=== PATIENT | female | born 1995 | race Caucasian/White ===

== ENCOUNTER → 2019-12-11 14:32 | Outpatient (BNVA) | payer OTHER, SELFPAY | PROVIDERS: Family Provider Nurse Practitioner Family; PCP Nurse Practitioner Family; Visit Provider Nurse Practitioner Family | DX: Z30.42 Encounter for surveillance of injectable contraceptive (principal) | CPT/HCPCS: 81025 ==

== ENCOUNTER → 2019-12-17 14:28 | Outpatient (BNVA) | payer OTHER, MEDICAID, SELFPAY | PROVIDERS: Family Provider Nurse Practitioner Family; PCP Nurse Practitioner Family; Visit Provider Nurse Practitioner Family | DX: Z30.42 Encounter for surveillance of injectable contraceptive (principal) | CPT/HCPCS: 81025 ==

== ENCOUNTER → 2020-02-14 14:05 | Outpatient (BNVA) | payer OTHER, SELFPAY | PROVIDERS: Family Provider Nurse Practitioner Family; PCP Nurse Practitioner Family; Visit Provider Nurse Practitioner Family | DX: R42 Dizziness and giddiness (principal); E78.2 Mixed hyperlipidemia; R53.83 Other fatigue; E55.9 Vitamin D deficiency, unspecified; D64.9 Anemia, unspecified; Z79.899 Other long term (current) drug therapy | CPT/HCPCS: 80053; 80061; 81001; 82306; 82607; 82728; 83036; 83540; 84439; 84443; 84481; 85025 ==

== ENCOUNTER → 2021-03-19 12:00 | Outpatient (BNVA) | payer OTHER, MEDICAID, SELFPAY | PROVIDERS: Family Provider Nurse Practitioner Family; PCP Nurse Practitioner Family; Visit Provider Nurse Practitioner Family | DX: J02.9 Acute pharyngitis, unspecified (principal) | CPT/HCPCS: 87070; 87880 ==

== ENCOUNTER → 2021-08-05 12:46 | Outpatient (BNVA) | payer OTHER, MEDICAID, SELFPAY | PROVIDERS: Family Provider Nurse Practitioner Family; PCP Nurse Practitioner Family; Visit Provider Nurse Practitioner Women's Health | DX: N92.6 Irregular menstruation, unspecified (principal); Z78.9 Other specified health status | CPT/HCPCS: 81025; 84702 ==

== ENCOUNTER 2021-08-06 20:32 | Emergency (ER) | payer OTHER, MEDICAID, SELFPAY ==
[2021-08-06 20:45] VITALS: BP 150/85; PULSE 72; RESP 16; TEMP 36.2; O2SAT 100; BMI 38.4
[2021-08-06 21:07] LABS: Add Urine Microscopic? NO; Charge for UA Resulting for Rev
[2021-08-06 21:08] LABS: Bilirubin Urine Neg (Negative); Blood Urine Neg (Negative); Glucose Urine UA Norm (Normal); Ketones Urine Negative (Negative); Leukocyte Esterase Urine Negative (Negative); Nitrate Urine Negative (Negative); Protein Urine Neg (Negative); Urine Appearance Clear (CLEAR); Urine Color Yellow (Yellow); Urobilinogen Urine Norm (Negative); pH Urine 5 (5-7)
--- NOTE | 2021-08-06 23:05 | ED_ITS ---
HPI - General: Chief complaint: OB/Uterine Contractions Stated complaint: bad cramps 6 weeks Time Seen by Provider: 08/06/21 22:57 History of Present Illness: HPI Narrative: Patient is a ,1 26-year-old female that is 6 weeks and comes to the ED with painful cramping. Cramping started yesterday. She denies any vaginal bleeding currently. She took some Tylenol around 4 PM today to help with the cramping pain. She contacted her OB doctor and they told her to come here to the ED to be evaluated. Denies any fever, chills or UTI symptoms. Her last resulted in a miscarriage and she is having similar symptoms from last miscarriage. Associated symptoms: Deny abdominal pain, dysuria, headache(s), nausea or vomiting Review of Systems Const: Denies: fever(s), chills or fatigue Eyes: Denies: change in vision or eye discomfort ENMT: Denies: throat pain, odynophagia, nasal discharge or nasal congestion Card: Denies: chest pain, palpitations, edema, swelling of feet/ankles, dyspnea on exertion or orthopnea Resp: Denies: dyspnea, productive cough or non-productive cough GI: Denies: abdominal pain, nausea, vomiting, diarrhea, constipation or hematochezia : Reports: pelvic pain (cramping ain); Denies: flank pain, dysuria, hematuria or vaginal bleeding Musc: Denies: neck pain, back pain or extremity swelling Skin/Breast: Denies: rash or new lesions Neuro: Denies: headache(s), numbness in extremities or weakness in extremities PFSH ED PFSH: Medical History No pertinent past medical history neghx: htn,dm,thyroid,dvt/pe PCP: SHERITA Gross Surgical History S/P lymph node biopsy 13 months of age- groin lymph node-- removed. Was benign. Family History Grandmother Breast cancer Maternal--dx age 50-60 Hypertension Maternal Mother Diabetes Hypertension Thyroid disease Grandfather Diabetes Paternal Thyroid disease Maternal Brother Hypertension Denies family history of Colon cancer Ovarian cancer Heart disease Hypercholesteremia Uterine cancer Stroke Physical Exam Const: COMMON NORMALS: no acute distress, patient oriented x3, healthy appearing and alert GENERAL APPEARANCE: cooperative and comfortable HENMT: COMMON NORMALS: normocephalic HEAD & SCALP: normocephalic MOUTH: Normal oral and palatal mucosa present THROAT: posterior oropharynx normal and uvula midline Eye: COMMON NORMALS: Equal, round and reactive pupils present PUPIL: Yes Equal, round and reactive pupils present Neck/C-Spine: COMMON NORMALS: supple GENERAL: Yes normal visual inspection Resp: COMMON NORMALS: normal respiratory effort, No retractions, No use of accessory muscles and clear to auscultation bilaterally AUSCULTATION: clear to auscultation bilaterally Cardio: COMMON NORMALS: regular rate, regular rhythm, S1 normal heart sound present, S2 normal heart sound present, No gallops present (Cardio), No clicks present (Cardio), No murmurs present (Cardio) and Peripheral pulses 2+ throughout RATE: regular rate RHYTHM: regular rhythm HEART SOUNDS: S1 normal heart sound present and S2 normal heart sound present PERIPHERAL PULSES: Peripheral pulses 2+ throughout GI: COMMON NORMALS: Normal to inspection, nondistended, normoactive bowel sounds present, Soft to palpation, non-tender and no masses PALPATION: Yes Soft to palpation : COMMON NORMALS: Yes no CVA tenderness BLADDER/KIDNEY EXAM: Yes no CVA tenderness Back/Pelvis: COMMON NORMALS: no CVA tenderness Extremity: COMMON NORMALS: normal to inspection Neuro: COMMON NORMALS: patient oriented x3 and moves all extremities SENSORIUM/ORIENTATION: Yes alert Skin: GENERAL SKIN EXAM: dry skin Course Vital Signs: Vital signs: Vital Signs Temperature 97.2 F L 08/06/21 20:45 Pulse Rate 78 08/07/21 00:57 Respiratory Rate 18 08/07/21 00:57 Blood Pressure 140/76 08/07/21 00:57 Pulse Oximetry 100 08/07/21 00:57 MDM - OB/Uterine Contractions MDM Narrative: Medical decision making narrative: Patient is a ,1 26-year-old female that is currently 6 weeks comes to the ED with abdominal cramping. Denies any other symptoms and no vaginal bleeding or discharge.. Vital stable. Patient appears nontoxic and in no acute distress. The rest of exam is benign. CBC is unremarkable. UA unremarkable. Patient is Rh type positive and hCG quant was 7316. Ultrasound showed a intrauterine gestational sac but no viability visible at this time. Patient was discharged home and told to call her OB doctor in the morning to discuss ED visit and ultrasound findings. Return to ED precautions given. She was told to have follow-up ultrasound done within the next 10 to 14 days. Patient understood and agreed with plan. Lab Data: Attestation: I reviewed the patient's lab results. Labs: Lab Results 08/06/21 08/06/21 08/06/21 20:50 23:35 23:35 WBC 9.2 10^3/uL 10^3/ uL (4.0-10.0) RBC 4.63 10^6/uL 10^6 /uL (4.1-5.3) Hgb 13.6 g/dL g/dL (11.5-15.3) Hct 42.6 % % (37.0-47.0) MCV 92.0 fl fl (81-99) MCH 29.4 pg pg (28.0-34.0) MCHC 31.9 g/dL g/dL (30.0-36.0) RDW 13.1 % % (12.1-15.1) Plt Count 209 10^3/cmm 10^3 /cmm (130-400) MPV 10.1 fL fL (7.4-10.4) Neut % (Auto) 53.3 % % Lymph % (Auto) 40.6 % % Swisher % (Auto) 5.4 % % Eos % (Auto) 0.4 % % Baso % (Auto) 0.1 % % Neut # (Auto) 4.89 10^3/uL 10^3 /uL (1.8-7.7) Lymph # (Auto) 3.7 10^3/uL 10^3/ uL (0.8-4.8) Swisher # (Auto) 0.5 10^3/uL 10^3/ uL (0.2-0.9) Eos # (Auto) 0.0 10^3/uL 10^3/ uL (0.0-0.8) Baso # (Auto) 0.0 10^3/uL 10^3/ uL (0.0-0.1) Nucleated RBC % (a uto) 0 % % Nucleated RBCs # 0.0 /100WBC /100W BC Ser , Shauna i-Qnt Urine Color Yellow (Yellow) Urine Appearance Clear (CLEAR) Urine pH 5 (5-7) Ur Specific Gravit y 1.010 (1.005-1.030) Urine Protein Neg (Negative) Urine Glucose (UA) Norm (Normal) Urine Ketones Negative (Negative) Urine Blood Neg (Negative) Urine Nitrate Negative (Negative) Urine Bilirubin Neg (Negative) Urine Urobilinogen Norm mg/dL mg/dL (Negative) Ur Leukocyte Marie ase Negative (Negative) Blood Type O Positive Rho(D) Type Positive Antibody Screen Negative 08/06/21 23:35 WBC RBC Hgb Hct MCV MCH MCHC RDW Plt Count MPV Neut % (Auto) Lymph % (Auto) Swisher % (Auto) Eos % (Auto) Baso % (Auto) Neut # (Auto) Lymph # (Auto) Swisher # (Auto) Eos # (Auto) Baso # (Auto) Nucleated RBC % (a uto) Nucleated RBCs # Ser , Shauna i-Qnt 7316.00 mIU/mL mI U/mL Urine Color Urine Appearance Urine pH Ur Specific Gravit y Urine Protein Urine Glucose (UA) Urine Ketones Urine Blood Urine Nitrate Urine Bilirubin Urine Urobilinogen Ur Leukocyte Marie ase Blood Type Rho(D) Type Antibody Screen Imaging Data^: US OB: Attestation: I personally reviewed and interpreted this imaging study as follows: Radiologist's impression: Ultrasound OB less than 14 weeks with transvaginal?prelim report?gestational sac seen in utero. No heartbeat seen yet. Gestational sac measuring around 5-1/[address] [address] Ultrasound Report Signed Patient: La Carney Unit #: [id number] : 1995 Age/Sex: 26 / F ADM Date: 08/06/21 Loc: ER Room/Bed: Attending Dr: Ordering Provider/Ordering MD: Jaden Leonard Date of Service: 08/06/21 Procedure(s): US OB <=14 wk fetus w transvag Accession Number(s): [id number] Report Number: [id number] PROCEDURE INFORMATION: Exam: US , Transvaginal Exam date and time: 08/06/2021 11:17 PM Age: 26 years old Clinical indication: complicated by abdominal or pelvic pain; Right lower quadrant; First trimester (<14 weeks 0 days); Gestational age or lmp: 5 w 4 day; ; Additional info: 6 weeks with painful cramping TECHNIQUE: Imaging protocol: Real-time transvaginal obstetrical ultrasound of the maternal pelvis with image documentation. Transvaginal imaging was used for better evaluation of the fetus, adnexa, and/or cervix. COMPARISON: No relevant prior studies available. FINDINGS: Gestation: Probable single intrauterine gestational sac in the uterine fundus. Probable yolk sac measuring 2.1 mm. Gestational sac diameter of 9 mm. No visible pole at this time. heart rate: No cardiac activity documented at this time. Placenta: No subchorionic hemorrhage identified. Amniotic fluid: Amniotic fluid volume subjectively adequate. MATERNAL: Uterus: Uterus has unremarkable size and morphology. Diffuse endometrial thickening. Right adnexa: Maternal right ovary is normal in size and appearance. Normal vascularity. Left adnexa: Maternal left ovary is normal in size and appearance. Unremarkable vascularity. US/US OB <=14 wk fetus w transvag IMPRESSION: 1. Probable early intrauterine gestation, however viability is not confirmed at this time. 2. As a pole is not clearly visible at this time, pseudo gestational sac cannot be excluded. Therefore, ectopic technically not excluded at this time. 3. Recommend Ob ultrasound follow-up in 10-14 days. Radiation Dose CTDIVOL = (mGy): DLP = (mGy-cm) Dictated By: Alex Buckner Signed By: Alex Buckner Signed Date/Time: 08/07/21 0113 [id number]/ [id number] Discharge Plan Discharge Patient Disposition: Home Clinical Impression: Abdominal cramping Currently Qualifiers: Weeks of gestation: less than 8 weeks Qualified Code(s): Z3A.01 - Less than 8 weeks gestation of Condition: Stable Prescriptions: No Action lidocaine HCl [Xylocaine] 10 mg/mL (1 %) solution 1 ml IM ONCE Qty: 1 RF: 0 ceftriaxone 1 gram recon soln 1 g IM ONCE Qty: 1 RF: 0 dexamethasone sodium phosphate 10 mg/mL solution 10 mg IM ONCE Qty: 1 RF: 0 [id number]-teoe oil 400 mcg-35 mg -25 mg-5 mg tablet,chewable PO RF: 0 Discharge Orders: Discharge ED (Routine); Ordered 08/07/21 Ordered By: Jaden Leonard Referrals: SHERITA Ayers, GLASS FURNACE OPERATOR [Primary Care Provider] - Discharge Diet: Regular Discharge Activity: Resume usual activity Patient Instructions: (ED) Activity Restrictions/Additional Instructions: Call your OB doctor tomorrow morning to discuss current symptoms and ultrasound findings. OB might want to do a repeat ultrasound in a week pending your symptoms. Take [id number] Tylenol for any pain. Return to the ER or your medical provider if condition worsens. Please read and understand discharge instructions. Thank you for choosing [facility] for your healthcare needs today. Please realize this is an emergency room and that we are providing you with a medical screening exam and this may not be complete and all inclusive of all the testing and or work up that you may need to determine your ailment or severity of your illness. It is very important that you follow up as instructed or that you return to the Emergency Department should you have concerns or if your condition changes or worsens in any way. Coding Level of Care Code ED Community Arts Worker for Estevan Fwjonathan Exam Comprehensive
--- NOTE | 2021-08-06 23:17 | USR_ITS ---
PROCEDURE INFORMATION: Exam: US , Transvaginal Exam date and time: 08/06/2021 11:17 PM Age: 26 years old Clinical indication: complicated by abdominal or pelvic pain; Right lower quadrant; First trimester (<14 weeks 0 days); Gestational age or lmp: 5 w 4 day; ; Additional info: 6 weeks with painful cramping TECHNIQUE: Imaging protocol: Real-time transvaginal obstetrical ultrasound of the maternal pelvis with image documentation. Transvaginal imaging was used for better evaluation of the fetus, adnexa, and/or cervix. COMPARISON: No relevant prior studies available. FINDINGS: Gestation: Probable single intrauterine gestational sac in the uterine fundus. Probable yolk sac measuring 2.1 mm. Gestational sac diameter of 9 mm. No visible pole at this time. heart rate: No cardiac activity documented at this time. Placenta: No subchorionic hemorrhage identified. Amniotic fluid: Amniotic fluid volume subjectively adequate. MATERNAL: Uterus: Uterus has unremarkable size and morphology. Diffuse endometrial thickening. Right adnexa: Maternal right ovary is normal in size and appearance. Normal vascularity. Left adnexa: Maternal left ovary is normal in size and appearance. Unremarkable vascularity. US/US OB <=14 wk fetus w transvag IMPRESSION: 1. Probable early intrauterine gestation, however viability is not confirmed at this time. 2. As a pole is not clearly visible at this time, pseudo gestational sac cannot be excluded. Therefore, ectopic technically not excluded at this time. 3. Recommend Ob ultrasound follow-up in 10-14 days. Radiation Dose CTDIVOL = (mGy): DLP = (mGy-cm)
[2021-08-07 00:09] LABS: Basophils % 0.1 %; Eosinophils % 0.4 %; Hematocrit 42.6 % (37.0-47.0); Hemoglobin 13.6 g/dL (11.5-15.3); Lymphocytes # 3.7 10^3/uL (0.8-4.8); Lymphocytes % 40.6 %; Mean Corpuscular HGB Conc 31.9 g/dL (30.0-36.0); Mean Corpuscular Hemoglobin 29.4 pg (28.0-34.0); Mean Platelet Volume 10.1 fL (7.4-10.4); Monocytes # 0.5 10^3/uL (0.2-0.9); Monocytes % 5.4 %; Neutrophils # 4.89 10^3/uL (1.8-7.7); Neutrophils % 53.3 %; Nucleated Red Blood Cells % 0 %; Platelet Count 209 10^3/cmm (130-400); Red Blood Count 4.63 10^6/uL (4.1-5.3); Red Cell Distribution Width 13.1 % (12.1-15.1); White Blood Count 9.2 10^3/uL (4.0-10.0)
--- NOTE | 2021-08-07 00:10 | PC.NURSE ---
In room while US was performed. Pt tolerated well.
[2021-08-07 00:11] VITALS: BP 145/81; PULSE 76; RESP 16; O2SAT 100
[2021-08-07 00:57] VITALS: BP 140/76; PULSE 78; RESP 18; O2SAT 100
== END 2021-08-07 00:58 | disposition home or self-care (01) ==
PROVIDERS: Emergency Medicine; Emergency Provider Physician Assistant; PCP Nurse Practitioner Family
DX: O26.891 Other specified pregnancy related conditions, first trimester (principal); Z3A.01 Less than 8 weeks gestation of pregnancy; R10.9 Unspecified abdominal pain
CPT/HCPCS: 76801; 76817; 81003; 84702; 85025; 86850; 86900; 99283

== ENCOUNTER → 2021-08-25 14:02 | Outpatient (BNVA) | payer OTHER, MEDICAID, SELFPAY | PROVIDERS: PCP Nurse Practitioner Family; Visit Provider Nurse Practitioner Women's Health | DX: Z34.90 Encounter for supervision of normal pregnancy, unspecified, unspecified trimester (principal) | CPT/HCPCS: 84315; 87077; 87086; 87184 ==

== ENCOUNTER → 2021-09-08 13:00 | Outpatient (BNVA) | payer MEDICAID, SELFPAY | PROVIDERS: PCP Nurse Practitioner Family; Visit Provider Obstetrics & Gynecology | DX: Z34.80 Encounter for supervision of other normal pregnancy, unspecified trimester (principal) | CPT/HCPCS: 80307; 83036; 84315; 84443; 85027; 86592; 86762; 86803; 86850; 86900; 87340; 87806 ==

== ENCOUNTER → 2021-09-14 09:46 | Outpatient (BNVA) | payer MEDICAID, SELFPAY | PROVIDERS: PCP Nurse Practitioner Family; Visit Provider Obstetrics & Gynecology | DX: Z34.90 Encounter for supervision of normal pregnancy, unspecified, unspecified trimester (principal); Z12.4 Encounter for screening for malignant neoplasm of cervix | CPT/HCPCS: 84315; 87491; 87591; 88175 ==

== ENCOUNTER → 2021-10-21 08:17 | Outpatient (BNVA) | payer MEDICAID, SELFPAY | PROVIDERS: PCP Nurse Practitioner Family; Visit Provider Nurse Practitioner Women's Health | DX: Z34.80 Encounter for supervision of other normal pregnancy, unspecified trimester (principal) | CPT/HCPCS: 84315; 87086 ==

== ENCOUNTER 2021-10-23 07:09 | Emergency (ER) | payer MEDICAID, SELFPAY ==
[2021-10-23 07:21] VITALS: BP 113/78; PULSE 121; RESP 18; TEMP 36.8; O2SAT 97; BMI 39.1
--- NOTE | 2021-10-23 08:04 | ED_ITS ---
HPI - COVID General: Chief Complaint: COVID symptoms Stated Complaint: congestion, fever, cough, sore throat, Time Seen by Provider: 10/23/21 07:19 Triage information: Has fever, cough or shortness of breath . No known COVID + exposure last 14 days History of Present Illness: HPI Narrative: 26-year-old female who presents to the emergency room intermittent chills sinus pain and pressure myalgias cough. Symptoms began yesterday. She is 16 weeks is a gestational diabetic and is currently on insulin. She was not vaccinated. She is not been significantly short of breath. MD complaint: has COVID symptoms Prior covid testing: no COVID 19 common symptoms: positive fever(s), chills, cough, non-productive cough, dyspnea, fatigue, body aches, headache(s), throat pain and nasal congestion; negative nausea, vomiting or diarrhea COVID 19 other sytmptoms: negative chest pain or requiring oxygen Onset (ago): day(s) (1) Severity: mild Pertinent comorbid conditions: diabetes and Treatment prior to arrival: acetaminophen COVID Results: SARS-CoV-2 Antigen (Rapid) Negative (Negative) 10/23/21 07:47 10/23/21 Review of Systems Const: Reports: fever(s), chills, body aches and fatigue ENMT: Reports: throat pain and nasal congestion Card: Denies: chest pain, edema, dyspnea on exertion or orthopnea Resp: Reports: dyspnea and non-productive cough GI: Denies: abdominal pain, nausea, vomiting, hematemesis, coffee ground emesis, diarrhea, constipation, bloating, hematochezia or melena : Denies: flank pain, difficulty voiding, dysuria, urinary frequency or urinary urgency Skin/Breast: Denies: rash or pruritus Neuro: Reports: headache(s) PFSH ED PFSH: Medical History No pertinent past medical history Denies diabetes, asthma, hypertension, seizures, DVT/PE PCPL SONIA Zelaya Surgical History S/P lymph node biopsy 13 months of age- groin lymph node-- removed. Was benign. Family History Grandmother Breast cancer Maternal--dx age 50-60 Hypertension Maternal Mother Diabetes Hypertension Thyroid disease Grandfather Diabetes Paternal Thyroid disease Maternal Brother Hypertension Denies family history of Colon cancer Ovarian cancer Heart disease Hypercholesteremia Uterine cancer Stroke Female Reproductive History: Date of last menstrual period: 06/28/21 Physical Exam Const: COMMON NORMALS: no acute distress GENERAL APPEARANCE: cooperative and comfortable ORIENTATION/CONSCIOUSNESS: Yes awake, Yes oriented to person, Yes oriented to place and Yes oriented to time HENMT: COMMON NORMALS: normocephalic, atraumatic, hearing grossly normal bilaterally, external ears normal, moist oral mucous membranes and oropharynx normal HEAD & SCALP: normocephalic and atraumatic EXTERNAL EAR: Yes external ears normal Eye: COMMON NORMALS: Equal, round and reactive pupils present, EOMs intact bilaterally, conjunctivae normal and no scleral icterus CONJUNCTIVA: Yes conjunctivae normal PUPIL: Yes Equal, round and reactive pupils present Neck/C-Spine: COMMON NORMALS: no JVD Resp: COMMON NORMALS: normal respiratory effort, No retractions, No use of accessory muscles and clear to auscultation bilaterally AUSCULTATION: clear to auscultation bilaterally Cardio: COMMON NORMALS: no JVD, regular rate, regular rhythm and No murmurs present (Cardio) RATE: regular rate RHYTHM: regular rhythm GI: COMMON NORMALS: Soft to palpation and No hepatosplenomegaly present AUSCULTATION: Yes normoactive bowel sounds PALPATION: Yes Soft to palpation, No Tenderness to palpation present (GI), No Guarding due to palpation present (GI) and Yes No hepatosplenomegaly present Extremity: COMMON NORMALS: normal to inspection, capillary refill normal, no clubbing, cyanosis or edema, no calf tenderness and no pedal edema Neuro: SENSORIUM/ORIENTATION: Yes oriented to person, Yes oriented to place and Yes oriented to time Skin: COMMON NORMALS: no rashes or lesions noted GENERAL SKIN EXAM: no rashes or lesions noted Course Vital Signs: Vital signs: Vital Signs Temperature 98.2 F 10/23/21 07:21 Pulse Rate 121 H 10/23/21 07:21 Respiratory Rate 18 10/23/21 07:21 Blood Pressure 113/78 10/23/21 07:21 Pulse Oximetry 98 10/23/21 08:35 MDM - COVID MDM Narrative: Medical decision making narrative: Clinical suspicion of COVID- 19. Patient is heart tones 150s. We did swab her for COVID we will go ahead and discharge her home if she is positive she will be a good candidate for monoclonal antibodies due to her diabetes and her state. Discussed this with her she is interested in doing it. Patient encouraged to maintain self quarantine until results are back. If has any worsening or change symptoms particularly increasing shortness of breath recheck. Lab Data: Labs: Lab Results 10/23/21 10/23/21 07:47 07:47 Influenza Type A A g Negative (Negative) Influenza Type B A g Negative (Negative) SARS-CoV-2 Ag (Rap id) Negative (Negative) COVID Results: SARS-CoV-2 Antigen (Rapid) Negative (Negative) 10/23/21 07:47 10/23/21 Discharge Plan Discharge Patient Disposition: Home Clinical Impression: Clinical diagnosis of COVID-19, state, incidental Condition: Stable Prescriptions: No Action [id number]-[id number]-uxy-gmd-eyln oil 400 mcg-35 mg -25 mg-5 mg tablet,chewable PO RF: 0 insulin NPH isoph U-100 human 100 unit/mL suspension 4 unit SUBCUT .QHS Qty: 10 RF: 0 (DME) BD Insulin Syringe 1 mL 25 gauge x 5/8 syringe See Rx Instructions .Route Qty: 100 RF: 1 (DME) lancets [BD Ultra Fine Lancets] 33 gauge misc See Rx Instructions .Route Qty: 120 RF: 1 (DME) blood-glucose meter Misc See Rx Instructions .Route Qty: 1 RF: 0 (DME) Blood Glucose Test Strip See Rx Instructions .Route Qty: 120 RF: 0 Discharge Orders: Discharge ED (Routine); Ordered 10/23/21 Ordered By: Hugo Hollis Referrals: SHERITA Ayers, CLAIMS EXAMINER [Primary Care Provider] - Discharge Diet: Usual diet Discharge Activity: Resume usual activity Patient Instructions: COVID-19 (Coronavirus Disease 2019) (ED), Opioid Safety Activity Restrictions/Additional Instructions: You were evaluated for COVID. We will contact you with the results when they are available. Recommend that you maintain self quarantine until the results are available. If you have any worsening symptoms shortness of breath return to the emergency room. If you are positive for COVID you would be a candidate for monoclonal antibodies. Coding Level of Care Code ED Construction Rigger for Estevan Fwjonathan Exam Comprehensive
[2021-10-23 08:35] VITALS: O2SAT 98
[2021-10-23 08:35] LABS: Influenza A by IFA Negative (Negative); Influenza B by IFA Negative (Negative); SARS Covid-2 Antigen Negative (Negative)
[2021-10-23 08:58] VITALS: BP 119/73; PULSE 104; RESP 17; O2SAT 99
[2021-10-23 09:37] VITALS: BP 119/73; PULSE 101; RESP 15; O2SAT 99
[2021-10-25 10:48] LABS: Quest SARS-CoV-2 RNA DETECTED (NOT DETECTED)
--- NOTE | 2021-10-25 16:10 | PC.NURSE ---
pt notified of postive covid results
== END 2021-10-23 09:39 | disposition home or self-care (01) ==
PROVIDERS: Physician Assistant; Emergency Provider Family Medicine; PCP Nurse Practitioner Family
DX: O98.512 Other viral diseases complicating pregnancy, second trimester (principal); O24.414 Gestational diabetes mellitus in pregnancy, insulin controlled; U07.1 COVID-19; Z3A.16 16 weeks gestation of pregnancy
CPT/HCPCS: 87426; 87635; 87804; 99283

== ENCOUNTER → 2022-01-12 11:55 | Outpatient (BNVA) | payer MEDICAID, SELFPAY | PROVIDERS: PCP Nurse Practitioner Family; Visit Provider Obstetrics & Gynecology | DX: Z34.80 Encounter for supervision of other normal pregnancy, unspecified trimester (principal) | CPT/HCPCS: 84315; 85027; 87086 ==

== ENCOUNTER 2022-03-09 11:40 | Outpatient (CLI) | payer MEDICAID, SELFPAY ==
--- NOTE | 2022-03-09 11:52 | US_ITS ---
WS: [id number] OB ultrasound for biophysical profile, 03/09/2022 Clinical Data: GESTATIONAL DIABETES Comparison: None. Findings: There is a single intrauterine in the vertex presentation. The heart rate is 147 beat s per minute. The cervical length is 5.4 and it is closed. The placenta is posterior. The biophysical profile is 8 of 8 with normal scores for breathing, movement, posture and tone and amniotic fluid volume. US/[place] OB B[place] [address] Impression: 1. Single intrauterine in vertex presentation. 2. Biophysical profile 8 of 8. 3. heart rate 147 beats per minute.
[2022-03-09 11:54] VITALS: BP 125/71; PULSE 101
--- NOTE | 2022-03-09 12:00 | P.PCN_ITS ---
Procedure/Consent Procedure Narrative: NONSTRESS TEST: Place of test: [facility] [place]-L&D Indication: 26-year-old 3 para 1-0-1-1 at 35 weeks and 6 days, GDM on medication Date and time of test: 03/09/2022 Baseline: 145 Variability: Moderate variability Accelerations: Accelerations present Decelerations: No decelerations Tocometry: No contractions INTERPRETATION: NST reactive-correlate with BPP, continue kick counts
[2022-03-09 12:15] VITALS: BP 127/67; PULSE 89
[2022-03-09 12:35] VITALS: BP 121/57; PULSE 91
[2022-03-09 12:55] VITALS: BP 133/55; PULSE 89
[2022-03-09 13:30] VITALS: BP 133/55; PULSE 89; RESP 18
== END 2022-03-09 13:30 | disposition home or self-care (01) ==
LOC: OPOB 11:44 → OBGYN 11:48
PROVIDERS: PCP Nurse Practitioner Family; Visit Provider Obstetrics & Gynecology
DX: O24.419 Gestational diabetes mellitus in pregnancy, unspecified control (principal); Z3A.00 Weeks of gestation of pregnancy not specified
CPT/HCPCS: 76819; 84315; 87081

== ENCOUNTER 2022-03-12 16:09 | Outpatient (CLI) | payer MEDICAID, SELFPAY | END 2022-03-12 16:34 | disposition home or self-care (01) | LOC: OPOB 16:09 → OBGYN 16:10 | PROVIDERS: PCP Nurse Practitioner Family; Visit Provider Obstetrics & Gynecology | DX: O24.419 Gestational diabetes mellitus in pregnancy, unspecified control (principal); Z3A.00 Weeks of gestation of pregnancy not specified | CPT/HCPCS: 59025 ==

== ENCOUNTER 2022-03-23 07:51 | Outpatient (CLI) | payer MEDICAID, SELFPAY ==
--- NOTE | 2022-03-23 08:00 | US_ITS ---
WS: [id number] BIOPHYSICAL PROFILE AMNIOTIC FLUID HISTORY: well being. COMPARISON: 03/09/2022 Cardiac activity: 147 bpm. Cervix: Poorly visualized due to head being positioned deep within the pelvis. Placenta: Posterior, no previa or abruption. Placenta grade: 2 Parameters are as follows: Breathin Movement: 2 Tone: 2 Fluid volume: 2 Amniotic fluid index: 13.8 cm. Largest vertical pocket of amniotic fluid 5.9 cm. US/US OB BPP [place] NST [address]56 IMPRESSION: 1. Biophysical profile score: 8/8. 2. Normal amniotic fluid index at 13.8 cm.
== END 2022-03-23 07:52 | disposition home or self-care (01) ==
LOC: RAD 07:55
PROVIDERS: Visit Provider Obstetrics & Gynecology
DX: O36.60X0 Maternal care for excessive fetal growth, unspecified trimester, not applicable or unspecified (principal); O24.415 Gestational diabetes mellitus in pregnancy, controlled by oral hypoglycemic drugs; Z3A.00 Weeks of gestation of pregnancy not specified
CPT/HCPCS: 76819; 84315

== ENCOUNTER 2022-03-25 00:57 | Inpatient (IN) | payer OTHER, MEDICAID, SELFPAY ==
[2022-03-24] VITALS (12 sets, daily range): BP systolic 103–143; BP diastolic 61–81; PULSE 90–107; RESP 17; TEMP 36.8; BMI 42.2
[2022-03-24 19:12] LABS: Glucose Point of Care 80 mg/dL (70-110)
[2022-03-24] MEDS: miSOPROStol 100 mcg tablet 25 MCG VAGINAL (20:00)
[2022-03-24 20:06] LABS: Basophils % 0.1 %; Eosinophils % 0.2 %; Hematocrit 36.5 % (37.0-47.0); Hemoglobin 12.6 g/dL (11.5-15.3); Lymphocytes # 1.9 10^3/uL (0.8-4.8); Lymphocytes % 19.1 %; Mean Corpuscular HGB Conc 34.5 g/dL (30.0-36.0); Mean Corpuscular Hemoglobin 30.4 pg (28.0-34.0); Mean Corpuscular Volume 88.2 fl (81-99); Monocytes # 0.8 10^3/uL (0.2-0.9); Monocytes % 7.8 %; Neutrophils # 7.19 10^3/uL (1.8-7.7); Neutrophils % 72.4 %; Nucleated Red Blood Cells % 0 %; Platelet Count 155 10^3/cmm (130-400); Red Blood Count 4.14 10^6/uL (4.1-5.3); Red Cell Distribution Width 14.4 % (12.1-15.1); White Blood Count 9.9 10^3/uL (4.0-10.0)
[2022-03-24 20:39] LABS: Glucose Point of Care 84 mg/dL (70-110)
[2022-03-24 21:35] LABS: Glucose Point of Care 85 mg/dL (70-110)
--- NOTE | 2022-03-24 21:39 | PM.OPHPUD ---
Labor & Delivery H&P Update Date of Procedure: March 25, 2022 Date H&P Performed: 03/23/22 H&P update information: I have reviewed H&P completed within last 30 days, I have examined patient prior to procedure and No changes to prior documentation Changes to previous documentation: The patient presents for induction of labor at 38 weeks gestation. is complicated by poorly controlled gestational diabetes with polyhydramnios and macrosomia. Admission Diagnosis: Related Problem List Diagnoses (1) macrosomia affecting management of mother, antepartum: (2) Anxiety: (3) Gestational diabetes: (4) Obesity affecting : (5) Supervision of other normal :
[2022-03-24 22:34] LABS: Glucose Point of Care 101 mg/dL (70-110)
[2022-03-25] VITALS (73 sets, daily range): BP systolic 86–165; BP diastolic 46–120; PULSE 73–187; RESP 17–18; TEMP 36.4–36.7; O2SAT 98–100
[2022-03-25] MEDS: sodium chloride 0.9% 1,000 ML 999 ML IV ×2 (00:04→16:24)
[2022-03-25] MEDS: miSOPROStol 100 mcg tablet 25 MCG VAGINAL ×3 (00:47→09:59)
[2022-03-25 03:01] LABS: Glucose Point of Care 80 mg/dL (70-110)
[2022-03-25 07:02] LABS: Glucose Point of Care 103 mg/dL (70-110)
[2022-03-25 11:14] LABS: Glucose Point of Care 80 mg/dL (70-110)
--- NOTE | 2022-03-25 13:00 | PM.PN ---
Vitals/I&O/Wt Last Vital Signs Temp 97.6 F 03/25/22 10:03 Pulse 75 03/25/22 11:42 Resp 18 03/25/22 10:03 BP 114/71 03/25/22 11:42 03/24/22 03/25/22 03/25/22 22:59 06:59 14:59 Intake Total 568.233 / 568.233 Balance 568.233 / 568.233 Weight last 48 hrs Weight 286 lb Physical Exam Narrative: The patient has received 3 doses of cytotec with no cervical change. status is overall very reassuring. Const: COMMON NORMALS: no acute distress, patient oriented x3, no limitations, alert and well nourished GENERAL APPEARANCE: cooperative, comfortable, well kempt and well developed ORIENTATION/CONSCIOUSNESS: Yes awake, Yes oriented to person, Yes oriented to place and Yes oriented to time Neuro: COMMON NORMALS: patient oriented x3 SENSORIUM/ORIENTATION: Yes alert, Yes oriented to person, Yes oriented to place and Yes oriented to time Psych: COMMON NORMALS: mental status grossly normal, Normal thought process present, cooperative, normal affect and speech normal APPEARANCE: Yes grossly normal and Yes well kempt SPEECH: Yes normal speech THOUGHT PROCESS: Normal thought process present Data : 03/24/22 19:45 A&P Assessment and plan (1) Gestational diabetes: Plan 1 additional dose of cytotec, then start pitocin. Status: Acute Qualifiers: Gestational diabetes mellitus control: oral hypoglycemic-controlled Trimester: second trimester Qualified Code(s): O24.415 - Gestational diabetes mellitus in , controlled by oral hypoglycemic drugs Attestations Medical Necessity Statement*: The patient is here for induction. She will be here for 2 midnights. Coding Level of Care Code Acute Filling And Packing Supervisor for g Fwd Diagnoses Gestational diabetes O24.415 Gestational diabetes mellitus control: oral hypoglycemic-controlled Trimester: second trimester
[2022-03-25] MEDS: oxytocin 30 UNIT/500 ML BAG IV (14:54)
[2022-03-25] MEDS: lactated ringers 1,000 ML 999 ML IV (15:23)
[2022-03-25 15:24] LABS: Glucose Point of Care 87 mg/dL (70-110)
--- NOTE | 2022-03-25 16:10 | ANES.PREANE2 ---
Pre-Anesthetic Assessment Height/Weight: Height 1.75 m Weight 129.727 kg Temp Pulse Resp BP Pulse Ox 97.6 F 98 18 116/55 100 03/25/22 10:03 03/25/22 16:09 03/25/22 10:03 03/25/22 16:09 03/25/22 16:04 epidural Familial anesthetic complications: none Social No alcohol and No tobacco Exam alert, oriented x 3, clear to auscultation bilaterally and regular rate & rhythm Airway Mallampati: Class III Dentition: chipped Metabolic Morbid Obesity gestational DM Anesthetic Plan ASA status: 2 Anesthesia: Regional (specify below) Medications/Allergies Home Medications Medication Instructions Recorded Confirmed Last Taken Type [id number] 400 mcg-om3 35 mg-dha 25 tab PO 08/05/21 03/23/22 Unknown History mg-epa 5 mg-fish oil chewable tablet blood-glucose meter #1 ea 09/11/21 03/23/22 Unknown Rx lancets 33 gauge (BD Ultra Fine #120 ea 09/14/21 03/23/22 Unknown Rx Lancets) acetaminophen 500 mg oral powder 500 mg PO Q6H PRN 11/23/21 03/23/22 Unknown History packet (Tylenol Extra Strength) blood sugar diagnostic (OneTouch #120 ea 02/01/22 03/23/22 Unknown Rx Verio test strips) glyburide 1.25 mg tablet 2.5 mg PO .COMPLEX tab 03/23/22 03/23/22 Unknown History Allergies Allergy/AdvReac Type Severity Reaction Status Date / Time No Known Allergies Allergy Verified 03/23/22 09:00 Current Medications Generic Name Dose Route Start Last Admin Trade Name [place] PRN Reason Stop Dose Admin Sodium Chloride 1,000 mls @ 125 mls/hr 03/24/22 19:30 03/25/22 15:35 Sodium Chloride 0.9% IV Infused .Q8H PRN Infusion LABOR INDUCTION Oxytocin 30 unit in 500 mls @ 1 mls/hr 03/25/22 14:00 03/25/22 15:30 Pitocin IV 3 milliunit/min .Q24H MARCOS 3 mls/hr Titration Protocol 1 MILLIUNIT/MIN Lactated Ringer's 1,000 mls @ 999 mls/hr 03/25/22 14:00 03/25/22 15:23 Lactated Ringers IV 999 mls/hr .Q1H1M PRN Administration See label comments PFSH Anesthesia Medical History No pertinent past medical history Denies diabetes, asthma, hypertension, seizures, DVT/PE PCP: SONIA Zelaya Surgical History S/P lymph node biopsy 13 months of age- groin lymph node-- removed. Was benign. Family History Grandmother Breast cancer Maternal--dx age 50-60 Hypertension Maternal Mother Diabetes Hypertension Thyroid disease Grandfather Diabetes Paternal Thyroid disease Maternal Brother Hypertension Denies family history of Colon cancer Ovarian cancer Heart disease Hypercholesteremia Uterine cancer Stroke Female Reproductive History : 3 Data Anesthesia : 03/24/22 19:45 Short CBC 03/24/22 Range/Units 19:45 WBC 9.9 (4.0-10.0) 10^3/uL Hgb 12.6 (11.5-15.3) g/dL Hct 36.5 L (37.0-47.0) % MCV 88.2 (81-99) fl Plt Count 155 (130-400) 10^3/cmm Neut % (Auto) 72.4 % Neut # (Auto) 7.19 (1.8-7.7) 10^3/uL Cardiac Studies: No Data to Display Anesthesia Procedures Epidural Time Out Performed: Yes Consents Signed: Procedure Consent and NPO Consent Consent: requested by attending/covering physician, from patient, risks and benefits reviewed and patient agrees to proceed Lumbar Level: L3-L4 Epidural position: sitting Epidural procedure: sterile prep of area, 1% lidocaine to numb the area, 18 g needle, negative for paresthesia passed, neg for paresthesia, test dose given, 1.5% xylocaine 1:200k epi (5 cc), 0.2% Ropivacaine bolus ml, placed PCEA, no systemic response, sterile dressing applied, L.U.D. no apparent complications and 0.2% Ropiavacaine @ mls/hr (13) Additional Comments: VINICIUS at 7 cm, threaded to 13 cm
[2022-03-25 19:29] LABS: Glucose Point of Care 52 mg/dL (70-110)
[2022-03-25] MEDS: dextrose 5%-lactated ringers 1,000 ML 125 ML IV (19:35)
[2022-03-25] MEDS: methylergonovine 0.2 mg/mL INJ 1 mL IM (21:21)
--- NOTE | 2022-03-25 21:32 | P.PCNOB_ITS ---
Delivery Note: Date of delivery: March 25, 2022 - PRE-DELIVERY DIAGNOSIS: 26-year-old 3 para 1-0-1-1 at 38 weeks and 0 days Gestational diabetes-poorly controlled on medication GBS negative Obesity with a BMI of 42 POST-DELIVERY DIAGNOSIS: Vaginal delivery on 03/25/2022 PROCEDURE: Vaginal delivery on 03/25/2022 ANESTHESIA: Epidural anesthesia DELIVERING PHYSICIAN: Mino Cao FACOG PRE-DELIVERY COURSE: Ms. salinas is a 26-year-old 3 para 1-0-1-1 at 38 weeks and 0 days who was admitted to labor and delivery on 03/24/2022 at 7 PM for induction of labor for poorly controlled gestational diabetes on medication. She is a gestational diabetic not well controlled with medication and was seeing maternal- medicine and as per the recommendation was scheduled for induction at 38 weeks and 0 days. She was GBS negative. She was admitted under Dr. Duran doctor on-call. Cervix at that time was 1 cm 50% and -3 station. Induction was started with Cytotec and she had a total of 4 Cytotec's placed overnight with the last one being placed at 10 AM on 03/25/2022. She made some cervical change to 2 to 3 cm 70% and -3 station and was started on Pitocin at 3 PM which was titrated to a maximum of 12 mIU. I took over care of patient at 5 PM when she was on 4 units of Pitocin. She had just had an epidural placed and was comfortable. When she was checked at 5:30 PM she was noted to be 4 cm, 70% and -2 station and had spontaneous rupture of membranes as the RN was checking her at 5:50 PM with clear fluid. Her fingersticks were initially every 4 hours and were within goal and as soon as she was in labor started out every 2 hours. tracing was overall category 1 with variable decelerations that resolved upon position change. She made rapid cervical change after this and was fully dilated at 8:30 PM on 03/25/2022. She was allowed to labor down for 10 to 15 minutes and then set up in lithotomy. DELIVERY NOTE: She was set up in lithotomy position and was pushing effectively. She was noted to be +3 station and continued pushing well. The head delivered in OP position, no nuchal cord was present. The shoulders and rest of the body followed with her next push. The baby's mouth and nose were suctioned and the baby was placed on the mother's belly. Since the baby was wet in about 30 seconds the cord was cut and baby handed to waiting mail agent Dr. Reyna. The placenta delivered spontaneously intact with membranes and was discarded. The fundus was noted to be firm initially however when uterine massage was stopped and became boggy again. This occurred 2 or 3 times and decision was made to give Methergine after which uterine tone improved and the fundus was well contracted. The vagina and cervix were inspected and no cervical or sulcal lacerations were noted. The perineum was intact except for a small first-degree vaginal laceration which was repaired with a [id number] suture. Good hemostasis and reapproximation was obtained. Baby boyJarrod born at 9:14 PM on 03/25/2022 with 8/9, weighing 8 pounds 0 ounces, 3630 g, 21-1/4 inches long. Placenta was delivered spontaneously intact with membranes at 9:18 PM cotyledons were intact , eccentrically inserted umbilical cord with 3 vessels noted. Estimated blood loss 350 mL. Complications-none, both baby and mother were left to recover in a stable condition This documentation was created by [employer] photoengraver apprentice software (known for inherent photoengraver apprentice error). Every effort was made to assure accuracy of photoengraver apprentice. Any obvious errors or omissions should be clarified with the author of the document. History History History 3 Term 2 Miscarriages/Ectopic 1 0 Living Children 2 Other History: 3, Para 2011 x 2 SAB x 1 1----> 07/29/2018, female, (Mikala), 7 lbs 13 oz, full-term vaginal delivery with epidural anesthesia, no complications with , reports ?shoulder dystocia with large perineal tear. Delivered by Dr. Iqbal in [place], [place]. 2---> 11/2020; SAB, no D&C required 3---> 03/26/2022, male(Jarrod), 8 pound 0 ounces, vaginal delivery at 38 weeks with epidural. Delivered by Dr. Cao at [facility] [place], first-degree vaginal tear. Patient was a gestational diabetic on glyburide throughout the -poorly controlled. Coding Level of Care Code Acute Kiln Car Unloader for Chg Fwd
[2022-03-26] VITALS (9 sets, daily range): BP systolic 105–129; BP diastolic 57–82; PULSE 78–111; RESP 15–20; TEMP 36.4–37.3; O2SAT 97–99
[2022-03-26] MEDS: acetaminophen 325 mg Tablet 650 MG PO (00:43)
[2022-03-26] MEDS: lanolin oint 7 gm 1 APPLIC TOPICAL (00:43)
[2022-03-26] MEDS: benzocaine-menthol 78 gm Canister 1 SPRAY TOPICAL (00:43)
[2022-03-26] MEDS: HYDROcodone-acetaminophen 5-325 mg Tablet PO (05:42)
--- NOTE | 2022-03-26 07:09 | P.PN_ITS ---
Subjective Subjective: SUBJECTIVE: Ms. salinas is doing well today. Had a headache overnight but this was resolved with medication. She denies heavy bleeding. States a little bit of soreness in her tailbone but this is already better today compared to yesterday. She denies nausea, vomiting, fever, chills, shortness of breath and chest pain. She has no other questions or concerns and is breast-feeding without any difficulty OBJECTIVE/PHYSICAL EXAM: Gen.: No acute distress Heart: S1-S2 heard, regular rate and rhythm Lungs: Clear to auscultation bilaterally Abdomen: Soft, fundus firm below umbilicus, Legs: No calf tenderness, + bilateral pitting pedal edema. ASSESSMENT AND PLAN: 26-year-old 3 para 2-0-1-2 status post vaginal delivery, day #1 -Routine care-regular diet, encourage ambulation, p.o. pain medication as needed -Normal monitoring from a diabetic standpoint -Encourage ambulation, ibuprofen as needed for pain -Anticipate discharge home tomorrow if she continues to do well -Follow-up a.m. CBC -Dr. Reyna to do circumcision Vitals/I&O/Wt Last Vital Signs Temp 97.7 F 03/26/22 05:49 Pulse 78 03/26/22 05:49 Resp 15 03/26/22 05:49 BP 118/74 03/26/22 05:49 Pulse Ox 97 03/26/22 05:49 03/25/22 03/26/22 03/26/22 22:59 06:59 14:59 Intake Total 3037.10 / 3037.10 427.083 / 3464.183 Output Total 300 / 300 1800 / 2100 Balance 2737.10 / 2737.10 -1372.917 / 1364.183 Weight last 48 hrs Weight 286 lb Physical Exam Urinary Catheter Management: Obrien Latex: Cath Placed During This Visit: yes, but has since been removed by the nurse Reason for Continuing Indwelling Catheter: Decision to DC Catheter Urinary Catheter Date of Insertion: 03/25/22 Urinary Catheter Time of Insertion: 16:35 Date Urinary Catheter Removed: 03/25/22 Time Urinary Catheter Discontinued: 20:49 Data : 03/24/22 19:45 Attestations Medical Necessity Statement*: Patient will need to stay 1-2 more midnights to recover from delivery Coding Level of Care Code Acute Money Market Dealer for Estevan Orozco
--- NOTE | 2022-03-26 08:01 | ANE.PACU2 ---
Inpatient post-anesthesia follow up: Airway intact: Yes Vital signs: Temperature 97.7 F Pulse Rate 78 Respiratory Rate 15 Blood Pressure 118/74 Pulse Oximetry 97 Oxygen Delivery Me thod Room Air Oxygen Flow Rate Fraction of Inspir ed Oxygen Hydration adequate: Yes Nausea and vomiting: No Pain level: 2 Mental status: Baseline
[2022-03-26] MEDS: docusate sodium 100 mg Capsule PO ×2 (09:29→20:51)
[2022-03-26] MEDS: prenatal vitamin Capsule 1 CAP PO (09:29)
[2022-03-26] MEDS: ibuprofen 800 mg tablet PO ×3 (09:29→20:51)
[2022-03-26 10:47] LABS: Hematocrit 35.8 % (37.0-47.0); Hemoglobin 12.3 g/dL (11.5-15.3); Mean Corpuscular HGB Conc 34.4 g/dL (30.0-36.0); Mean Corpuscular Hemoglobin 30.1 pg (28.0-34.0); Mean Corpuscular Volume 87.7 fl (81-99); Mean Platelet Volume 10.1 fL (7.4-10.4); Platelet Count 155 10^3/cmm (130-400); Red Blood Count 4.08 10^6/uL (4.1-5.3); Red Cell Distribution Width 14.2 % (12.1-15.1); White Blood Count 13.2 10^3/uL (4.0-10.0)
[2022-03-27 03:50] VITALS: BP 111/70; PULSE 74; RESP 16
[2022-03-27 10:30] VITALS: BP 115/75; PULSE 71; RESP 16; TEMP 36.8; O2SAT 97
[2022-03-27] MEDS: ibuprofen 800 mg tablet PO (10:32)
[2022-03-27] MEDS: docusate sodium 100 mg Capsule PO (10:32)
[2022-03-27] MEDS: prenatal vitamin Capsule 1 CAP PO (10:32)
--- NOTE | 2022-03-27 11:44 | P.DS_ITS ---
Discharge Providers Date of Admission: 03/25/22 00:57 Date of Discharge: March 27, 2022 Attending Provider at Admission: Anabella Duran MD Attending Provider at Discharge: Anabella Duran MD Diagnoses at Discharge Discharge Diagnosis (1) macrosomia affecting management of mother, antepartum: Status: Acute (2) Anxiety: Status: Acute (3) Gestational diabetes: Status: Acute Qualifiers: Gestational diabetes mellitus control: oral hypoglycemic-controlled T rimester: second trimester Qualified Code(s): O24.415 - Gestational diabetes mellitus in , controlled by oral hypoglycemic drugs (4) Obesity affecting : Status: Acute Qualifiers: Trimester: third trimester Qualified Code(s): O99.213 - Obesity complicating , third trimester (5) Supervision of other normal : Status: Acute Reason for Visit Reason for Visit: Induction Hospital Course Hospital Course The patient was admitted for induction at term. She had spontaneous delivery of a term . She did well and was ready for discharge on day#1 Physical Exam Const: COMMON NORMALS: no acute distress, no limitations, healthy appearing and alert GENERAL APPEARANCE: cooperative, comfortable, well kempt and well developed ORIENTATION/CONSCIOUSNESS: Yes awake, Yes oriented to person, Yes oriented to place and Yes oriented to time Resp: COMMON NORMALS: normal respiratory effort EFFORT & INSPECTION: Yes able to speak in complete sentences GI: COMMON NORMALS: Soft to palpation and non-tender PALPATION: Yes Soft to palpation Extremity: COMMON NORMALS: no calf tenderness Neuro: SENSORIUM/ORIENTATION: Yes alert, Yes oriented to person, Yes oriented to place and Yes oriented to time Psych: COMMON NORMALS: mental status grossly normal, Normal thought process present, cooperative, normal affect and speech normal APPEARANCE: Yes grossly normal and Yes well kempt ATTITUDE: Yes calm and Yes engaged SPEECH: Yes normal speech THOUGHT PROCESS: Normal thought process present Urinary Catheter Management: Obrien Latex: Cath Placed During This Visit: yes, but has since been removed by the nurse Reason for Continuing Indwelling Catheter: Decision to DC Catheter Urinary Catheter Date of Insertion: 03/25/22 Urinary Catheter Time of Insertion: 16:35 Date Urinary Catheter Removed: 03/25/22 Time Urinary Catheter Discontinued: 20:49 Discharge Data Studies Completed and Pending Laboratory Results WBC 13.2 10^3/uL (4.0-10.0) H 03/26/22 10:20 RBC 4.08 10^6/uL (4.1-5.3) L 03/26/22 10:20 Hgb 12.3 g/dL (11.5-15.3) 03/26/22 10:20 Hct 35.8 % (37.0-47.0) L 03/26/22 10:20 MCV 87.7 fl (81-99) 03/26/22 10:20 MCH 30.1 pg (28.0-34.0) 03/26/22 10:20 MCHC 34.4 g/dL (30.0-36.0) 03/26/22 10:20 RDW 14.2 % (12.1-15.1) 03/26/22 10:20 Plt Count 155 10^3/cmm (130-400) 03/26/22 10:20 MPV 10.1 fL (7.4-10.4) 03/26/22 10:20 Neut % (Auto) 72.4 % 03/24/22 19:45 Lymph % (Auto) 19.1 % 03/24/22 19:45 [place] % (Auto) 7.8 % 03/24/22 19:45 Eos % (Auto) 0.2 % 03/24/22 19:45 Baso % (Auto) 0.1 % 03/24/22 19:45 Neut # (Auto) 7.19 10^3/uL (1.8-7.7) 03/24/22 19:45 Lymph # (Auto) 1.9 10^3/uL (0.8-4.8) 03/24/22 19:45 [place] # (Auto) 0.8 10^3/uL (0.2-0.9) 03/24/22 19:45 Eos # (Auto) 0.0 10^3/uL (0.0-0.8) 03/24/22 19:45 Baso # (Auto) 0.0 10^3/uL (0.0-0.1) 03/24/22 19:45 Nucleated RBC % (auto) 0 % 03/24/22 19:45 Nucleated RBCs # 0.0 /100WBC 03/24/22 19:45 POC Glucose 52 mg/dL (70-110) L 03/25/22 19:26 Vitals Last Vital Signs Temp 98.2 F 03/27/22 10:30 Pulse 71 03/27/22 10:30 Resp 16 03/27/22 10:30 BP 115/75 03/27/22 10:30 Pulse Ox 97 03/27/22 10:30 Discharge Plan Discharge Patient Disposition: Home Condition: Stable Prescriptions: Continued (DME) lancets [BD Ultra Fine Lancets] 33 gauge misc See Rx Instructions .Route Qty: 120 1RF Rx Instructions: As directed (DME) blood-glucose meter Misc See Rx Instructions .Route Qty: 1 0RF Rx Instructions: As directed (DME) OneTouch Verio test strips Strip See Rx Instructions .ROUTE .COMPLEX Qty: 120 2RF Dose Instruction: USE DIRECTED Rx Instructions: USE DIRECTED glyburide 1.25 mg tablet 2.5 mg PO .COMPLEX 0RF Rx Instructions: 2.5 mg PO with breakfast and lunch; 7.25mg at hs; Discharge Orders: Discharge Order (Routine); Ordered 03/27/22 Ordered By: Anabella Duran Patient Instructions: Depression (DC), Bleeding (DC), P reeclampsia and Eclampsia After Delivery (GEN), OB Discharge Report, OB Food/Drug Interaction Guide, Opioid Safety, OB Home Care, OB Proud Parent Packet, OB Vaginal Deliveries - [facility] Discharge Attestations Time Spent in Discharge Care*: less than 30 min Quality Metrics Clinical Quality Measures [ No reported AMI, CVA or VTE this stay] Coding Level of Care Code Acute Chg FW DC note Diagnoses macrosomia affecting management of mother, antepartum O36.60X0 Anxiety F41.9 Gestational diabetes O24.415 Gestational diabetes mellitus control: oral hypoglycemic-controlled Trimester: second trimester Obesity affecting O99.213 Trimester: third trimester Supervision of other normal Z34.80
[2022-03-27 12:30] VITALS: BP 115/75; PULSE 71; RESP 16; TEMP 36.8; O2SAT 97
== END 2022-03-27 12:40 | disposition home or self-care (01) | DRG 807 ==
LOC: OPOB 00:57 → OBGYN 00:57
PROVIDERS: Obstetrics & Gynecology; Admitting Provider Obstetrics & Gynecology; Visit Provider Obstetrics & Gynecology
DX: O99.214 Obesity complicating childbirth (principal); Z37.0 Single live birth; O99.344 Other mental disorders complicating childbirth; O36.63X0 Maternal care for excessive fetal growth, third trimester, not applicable or unspecified; O76 Abnormality in fetal heart rate and rhythm complicating labor and delivery; O70.0 First degree perineal laceration during delivery; O24.425 Gestational diabetes mellitus in childbirth, controlled by oral hypoglycemic drugs; Z3A.38 38 weeks gestation of pregnancy; Z79.84 Long term (current) use of oral hypoglycemic drugs
CPT/HCPCS: 36415; 36416; 51702; 59025; 59409; 82962; 85025; 85027; 96372; J2210; J2795; J7030

== ENCOUNTER → 2022-10-05 09:11 | Outpatient (BNVA) | payer MEDICAID, SELFPAY | PROVIDERS: PCP Nurse Practitioner; Visit Provider Nurse Practitioner | DX: R50.9 Fever, unspecified (principal); J10.1 Influenza due to other identified influenza virus with other respiratory manifestations | CPT/HCPCS: 87400 ==